=== PATIENT | female | born 1995 | race American Indian/Alaskan Native ===

== ENCOUNTER 2017-01-19 05:02 | Emergency (ER) | payer MEDICAID ==
[2017-01-19] MEDS ORDERED: ZOFRAN IV ONE ×2 (05:19→10:38)
[2017-01-19] MEDS ORDERED: TORADOL IV ONE (05:20)
[2017-01-19 05:51] LABS: Basophils % (Auto) 0.9 % (0.0-1.8); Eosinophils % (Auto) 0.1 % (0.0-4.3); Hematocrit 42.7 % (30.3-42.9); Hemoglobin 14.9 gm/dl (10.1-14.3); Mean Corpuscular HGB Conc 35 % (30-34); Mean Corpuscular Hemoglobin 33 pg (28-32); Mean Corpuscular Volume 94 fl (79-97); Platelet Count 270 K/mm3 (140-440); Red Blood Count 4.57 M/mm3 (3.65-5.03); Red Cell Distribution Width 12.5 % (13.2-15.2); White Blood Count 12.4 K/mm3 (4.5-11.0)
[2017-01-19 06:19] LABS: Alanine Aminotransferase 14 units/L (7-56); Albumin 5.3 g/dL (3.9-5); Albumin/Globulin Ratio 1.4 %; Alkaline Phosphatase 56 units/L (35-129); Anion Gap 22 mmol/L; BUN/Creatinine Ratio 16; Blood Urea Nitrogen 11 mg/dL (7-17); Carbon Dioxide 23 mmol/L (22-30); Chloride 95.4 mmol/L (98-107); Glucose 114 mg/dL (65-100); Lipase 54 units/L (13-60); Potassium 3.3 mmol/L (3.6-5.0); Sodium 137 mmol/L (137-145)
[2017-01-19] MEDS ORDERED: ZOFRAN IM ONE (10:07)
--- NOTE | 2017-01-19 10:12 | Emergency Department Report ---
ED Abdominal Pain HPI - General Chief Complaint: Abdominal Pain Stated Complaint: SEVERE ABD PAIN Time Seen by Provider: 01/19/17 10:10 Source: patient Mode of arrival: Ambulatory Limitations: No Limitations - History of Present Illness Initial Comments: The patient complains of crampy lower abdominal pain which began at the onset of her period 2-3 days ago. Her discomfort has been intermittent. She has been here for similar symptoms before. She states that she does have painful periods. She denies dysuria and discharge. She's had no fever or chills. MD Complaint: abdominal pain -: Gradual, days(s) Location: LLQ, RLQ Radiation: none Migration to: no migration Severity: moderate, severe Quality: cramping Consistency: intermittent Improves With: nothing Worsens With: nothing Context: other (menses) Associated Symptoms: nausea, vomiting - Related Data Previous Rx's Medication Instructions Recorded Last Taken Type Cyclobenzaprine HCl [Flexeril 5mg] 5 mg PO Q8H PRN #12 tablet 07/28/14 Unknown Rx Ibuprofen [Motrin 600 MG tab] 600 mg PO Q8H #21 tablet 07/28/14 Unknown Rx Ibuprofen [Motrin 600 MG tab] 600 mg PO Q8H PRN #30 tablet 11/17/15 Unknown Rx Levofloxacin [Levaquin TAB] 500 mg PO QDAY #7 tablet 11/17/15 Unknown Rx Nitrofurantoin Monohyd/M-Cryst 100 mg PO BID #7 capsule 01/19/17 Unknown Rx [Macrobid 100 mg Capsule] Ondansetron [Zofran Odt] 4 mg PO Q6H #7 tab.rapdis 01/19/17 Unknown Rx traMADol [Ultram] 50 mg PO Q6HR PRN #10 tablet 01/19/17 Unknown Rx Allergies Allergy/AdvReac Type Severity Reaction Status Date / Time Penicillins Allergy Unknown Verified 05/25/15 23:56 ED Review of Systems ROS: Stated complaint: SEVERE ABD PAIN Other details as noted in HPI Constitutional: denies: chills, fever Eyes: denies: eye pain, eye discharge, vision change ENT: denies: ear pain, throat pain Respiratory: denies: cough, shortness of breath, wheezing Cardiovascular: denies: chest pain, palpitations Endocrine: no symptoms reported Gastrointestinal: as per HPI, abdominal pain, nausea, vomiting. denies: diarrhea Genitourinary: other. denies: urgency, dysuria, discharge Musculoskeletal: denies: back pain, joint swelling, arthralgia Skin: denies: rash, lesions Neurological: denies: headache, weakness, paresthesias Psychiatric: denies: anxiety, depression Hematological/Lymphatic: denies: easy bleeding, easy bruising ED Past Medical Hx - Past Medical History Previous Medical History?: No - Surgical History Past Surgical History?: No - Social History Smoking Status: Never Smoker Substance Use Type: None - Medications Home Medications: Home Medications Medication Instructions Recorded Confirmed Last Taken Type Cyclobenzaprine HCl [Flexeril 5mg] 5 mg PO Q8H PRN #12 tablet 07/28/14 Unknown Rx Ibuprofen [Motrin 600 MG tab] 600 mg PO Q8H #21 tablet 07/28/14 Unknown Rx Ibuprofen [Motrin 600 MG tab] 600 mg PO Q8H PRN #30 tablet 11/17/15 Unknown Rx Levofloxacin [Levaquin TAB] 500 mg PO QDAY #7 tablet 11/17/15 Unknown Rx Nitrofurantoin Monohyd/M-Cryst 100 mg PO BID #7 capsule 01/19/17 Unknown Rx [Macrobid 100 mg Capsule] Ondansetron [Zofran Odt] 4 mg PO Q6H #7 tab.rapdis 01/19/17 Unknown Rx traMADol [Ultram] 50 mg PO Q6HR PRN #10 tablet 01/19/17 Unknown Rx ED Physical Exam - General Limitations: No Limitations General appearance: alert, in no apparent distress, other (somewhat dry) - Head Head exam: Present: atraumatic, normocephalic - Eye Eye exam: Present: normal appearance. Absent: scleral icterus - ENT ENT exam: Present: mucous membranes moist - Neck Neck exam: Present: normal inspection - Respiratory Respiratory exam: Present: normal lung sounds bilaterally. Absent: respiratory distress - Cardiovascular Cardiovascular Exam: Present: regular rate, normal rhythm. Absent: systolic murmur, diastolic murmur, rubs, gallop - GI/Abdominal GI/Abdominal exam: Present: soft, distended, tenderness (some lower abdominal discomfort to palpation bilaterally and in the suprapubic region), normal bowel sounds. Absent: guarding, rebound, rigid, organomegaly, mass, bruit, pulsatile mass, hernia - Extremities Exam Extremities exam: Present: normal inspection - Back Exam Back exam: Present: normal inspection - Neurological Exam Neurological exam: Present: alert, oriented X3, CN II-XII intact. Absent: motor sensory deficit - Psychiatric Psychiatric exam: Present: normal affect, normal mood - Skin Skin exam: Present: warm, dry, intact, normal color. Absent: rash ED Course Vital Signs 01/19/17 05:09 Temperature 98 F Pulse Rate 98 H Respiratory 20 Rate Blood Pressure 142/92 O2 Sat by Pulse 100 Oximetry - Reevaluation(s) Reevaluation #1: Symptoms have improved. No more emesis. Tolerated potassium by mouth. Possible mild UTI. Patient states she has follow-up physician. She will be discharged. States ready for discharge. 01/19/17 13:56 ED Medical Decision Making - Lab Data Result diagrams: 01/19/17 05:00 01/19/17 05:17 Laboratory Results - last 24 hr 01/19/17 01/19/17 01/19/17 05:00 05:00 05:17 WBC 12.4 H RBC 4.57 Hgb 14.9 H Hct 42.7 MCV 94 MCH 33 H MCHC 35 H RDW 12.5 L Plt Count 270 Lymph % (Auto) 14.2 [place] % (Auto) 7.7 H Eos % (Auto) 0.1 Baso % (Auto) 0.9 Lymph # 1.8 [place] # 1.0 H Eos # 0.0 Baso # 0.1 Seg Neutrophils % 77.1 H Seg Neutrophils # 9.5 H Sodium 137 Potassium 3.3 L Chloride 95.4 L Carbon Dioxide 23 Anion Gap 22 BUN 11 Creatinine 0.7 Estimated GFR > 60 BUN/Creatinine Ratio 16 Glucose 114 H POC Glucose Calcium 10.0 Total Bilirubin 0.50 AST 19 ALT 14 Alkaline Phosphatase 56 Total Protein 9.0 H Albumin 5.3 H Albumin/Globulin Ratio 1.4 Lipase 54 HCG, Qual Negative 01/19/17 05:26 WBC RBC Hgb Hct MCV MCH MCHC RDW Plt Count Lymph % (Auto) [place] % (Auto) Eos % (Auto) Baso % (Auto) Lymph # [place] # Eos # Baso # Seg Neutrophils % Seg Neutrophils # Sodium Potassium Chloride Carbon Dioxide Anion Gap BUN Creatinine Estimated GFR BUN/Creatinine Ratio Glucose POC Glucose 110 H Calcium Total Bilirubin AST ALT Alkaline Phosphatase Total Protein Albumin Albumin/Globulin Ratio Lipase HCG, Qual Laboratory Results - last 24 hr 01/19/17 01/19/17 01/19/17 05:00 05:00 05:17 WBC 12.4 H RBC 4.57 Hgb 14.9 H Hct 42.7 MCV 94 MCH 33 H MCHC 35 H RDW 12.5 L Plt Count 270 Lymph % (Auto) 14.2 [place] % (Auto) 7.7 H Eos % (Auto) 0.1 Baso % (Auto) 0.9 Lymph # 1.8 [place] # 1.0 H Eos # 0.0 Baso # 0.1 Seg Neutrophils % 77.1 H Seg Neutrophils # 9.5 H Sodium 137 Potassium 3.3 L Chloride 95.4 L Carbon Dioxide 23 Anion Gap 22 BUN 11 Creatinine 0.7 Estimated GFR > 60 BUN/Creatinine Ratio 16 Glucose 114 H POC Glucose Calcium 10.0 Total Bilirubin 0.50 AST 19 ALT 14 Alkaline Phosphatase 56 Total Protein 9.0 H Albumin 5.3 H Albumin/Globulin Ratio 1.4 Lipase 54 HCG, Qual Negative Urine Color Urine Turbidity Urine pH Ur Specific [place] Urine Protein Urine Glucose (UA) Urine Ketones Urine Blood Urine Nitrite Urine Bilirubin Urine Urobilinogen Ur Leukocyte Esterase Urine WBC (Auto) Urine RBC (Auto) U Epithel Cells (Auto) Urine Mucus 01/19/17 01/19/17 05:26 13:20 WBC RBC Hgb Hct MCV MCH MCHC RDW Plt Count Lymph % (Auto) [place] % (Auto) Eos % (Auto) Baso % (Auto) Lymph # [place] # Eos # Baso # Seg Neutrophils % Seg Neutrophils # Sodium Potassium Chloride Carbon Dioxide Anion Gap BUN Creatinine Estimated GFR BUN/Creatinine Ratio Glucose POC Glucose 110 H Calcium Total Bilirubin AST ALT Alkaline Phosphatase Total Protein Albumin Albumin/Globulin Ratio Lipase HCG, Qual Urine Color Yellow Urine Turbidity Clear Urine pH 5.0 Ur Specific [place] 1.033 H Urine Protein 30 mg/dl Urine Glucose (UA) Neg Urine Ketones 80 Urine Blood Lg Urine Nitrite Neg Urine Bilirubin Neg Urine Urobilinogen < 2.0 Ur Leukocyte Esterase Neg Urine WBC (Auto) 5.0 Urine RBC (Auto) < 1.0 U Epithel Cells (Auto) 7.0 Urine Mucus 3+ - Radiology Data Radiology results: report reviewed (ultrasound study showed no acute process) Critical care attestation.: If time is entered above; I have spent that time in minutes in the direct care of this critically ill patient, excluding procedure time. 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 Return any recurrent symptoms acute change or problem. Rx as needed. Possible mild UTI. Will give you antibiotics for a few days. Prescriptions: Nitrofurantoin Monohyd/M-Cryst [Macrobid 100 mg Capsule] 100 mg PO BID #7 capsule Ondansetron [Zofran Odt] 4 mg PO Q6H #7 tab.rapdis traMADol [Ultram] 50 mg PO Q6HR PRN #10 tablet PRN Reason: Pain Referrals: PRIMARY CARE, [Primary Care Provider] - 2-3 Days Time of Disposition: 14:00
[2017-01-19] MEDS ORDERED: MORPHINE IV ONE (10:14)
[2017-01-19] MEDS ORDERED: NACL 0.9% 1000 ML 1,000 ML IV ONE (10:23)
[2017-01-19] MEDS ORDERED: REGLAN IV ONE (10:23)
[2017-01-19] MEDS ORDERED: K-DUR PO ONE (11:23)
--- NOTE | 2017-01-19 11:31 | Ultrasound Report ---
Pelvic and transvaginal sonography: History: Lower abdominal pain. Findings: Uterus measures 7 x 2.7 x 4.7 cm. Endometrial thickness 5 mm. No mass in the uterus. Right ovary 2.6 x 2.7 x 2.4 cm. No mass. Left ovary 2.4 x 2 x 2.5 cm. No mass. There is debris identified within the bladder without calculi. Impression: No mass in the uterus. No mass of the adnexa. Debri within the bladder.
[2017-01-19 13:48] LABS: Bilirubin,Urine NEG (Negative); Blood,Urine LG (Negative); Ketones,Urine 80 mg/dL (Negative); Leukocyte Esterase,Urine NEG (Negative); Mucus,Urine 3+ /HPF; Nitrite,Urine NEG (Negative); RBC,Urine < 1.0 /HPF (0.0-6.0); Urobilinogen,Urine < 2.0 mg/dL (<2.0)
[2017-01-19 14:13] VITALS: BP 149/66
== END 2017-01-19 14:13 | disposition home or self-care (01) ==
LOC: ED 05:02
DX: E86.9 Volume depletion, unspecified (principal); E87.6 Hypokalemia; N94.6 Dysmenorrhea, unspecified; N39.0 Urinary tract infection, site not specified; Z88.0 Allergy status to penicillin
CPT/HCPCS: 36415; 76830; 76856; 80053; 81001; 82962; 83690; 84703; 85025; 96361; 96374; 96375; 96376; 99284; J1885; J2270; J2405; J2765; J7030

== ENCOUNTER 2018-10-24 12:05 | Inpatient (IN) | payer MEDICAID, OTHER ==
[2018-10-24] MEDS ORDERED: NACL 0.9% 1000 ML 1,000 ML ONE ×2 (12:28→12:31)
[2018-10-24] MEDS ORDERED: NACL 0.9% 1000 ML 1,000 ML IV ONE ×3 (12:29→13:44)
[2018-10-24] MEDS ORDERED: ZOFRAN ONE (12:29)
[2018-10-24] MEDS ORDERED: ZOFRAN IV ONE (12:29)
[2018-10-24 12:52] LABS: Basophils # (Auto) 0.1 K/mm3 (0.0-0.1); Basophils % (Auto) 0.9 % (0.0-1.8); Eosinophils # (Auto) 0.1 K/mm3 (0.0-0.4); Eosinophils % (Auto) 0.7 % (0.0-4.3); Hematocrit 45.5 % (30.3-42.9); Hemoglobin 16.1 gm/dl (10.1-14.3); Lymphocytes # (Auto) 2.2 K/mm3 (1.2-5.4); Lymphocytes % (Auto) 26.4 % (13.4-35.0); Mean Corpuscular HGB Conc 35 % (30-34); Mean Corpuscular Volume 94 fl (79-97); Monocytes % (Auto) 11.9 % (0.0-7.3); Platelet Count 357 K/mm3 (140-440); Red Blood Count 4.86 M/mm3 (3.65-5.03); Red Cell Distribution Width 12.7 % (13.2-15.2)
[2018-10-24 13:15] LABS: Alanine Aminotransferase 16 units/L (7-56); Albumin 4.7 g/dL (3.9-5); BUN/Creatinine Ratio 16; Blood Urea Nitrogen 14 mg/dL (7-17); Calcium 9.6 mg/dL (8.4-10.2); Hemolysis Index 5
--- NOTE | 2018-10-24 13:19 | Emergency Department Report ---
HPI - General Chief Complaint: Nausea/Vomiting/Diarrhea Time Seen by Provider: 10/24/18 12:29 - HPI HPI: Room 18 The patient is a 23-year-old female presenting with a chief complaint nausea vomiting and body pain. Patient states for the past 5 days she's had frequent nausea and vomiting. Patient denies diarrhea. Patient complains of pain throughout her body. Location: [See above] Duration: [See above] Quality: [See above] Severity: [See above] Modifying factors: [see above] Context: [see above] Mode of transportation: [not driving] ED Past Medical Hx - Past Medical History Previous Medical History?: No - Surgical History Past Surgical History?: No - Family History Family history: no significant - Social History Smoking Status: Never Smoker Substance Use Type: None (denies illicit drug use) - Medications Home Medications: Home Medications Medication Instructions Recorded Confirmed Last Taken Type No Known Home Medications [No 10/24/18 10/24/18 Unknown History Reported Home Medications] ED Review of Systems ROS: Stated complaint: NAUSEA/ABD/BACK PAIN Other details as noted in HPI Constitutional: denies: fever Eyes: denies: eye pain ENT: denies: throat pain Respiratory: no symptoms reported Cardiovascular: denies: chest pain Endocrine: no symptoms reported Gastrointestinal: abdominal pain, nausea, vomiting Genitourinary: denies: dysuria Musculoskeletal: myalgia Neurological: denies: headache Physical Exam - Physical Exam Vital Signs: Vital Signs 10/24/18 10/24/18 10/24/18 12:22 12:30 12:45 Temperature 98.2 F Pulse Rate 171 H 142 H 128 H Respiratory 11 L 14 11 L Rate Blood Pressure 148/101 136/103 O2 Sat by Pulse 99 100 100 Oximetry Physical Exam: GENERAL: The patient is well-developed well-nourished female lying on stretcher appearing to be in mild discomfort. [] HEENT: Normocephalic. Atraumatic. Extraocular motions are intact. NECK: Supple. Trachea midline CHEST/LUNGS: Clear to auscultation. There is no respiratory distress noted. HEART/CARDIOVASCULAR: Regular. There is no tachycardia. There is no gallop rub or murmur. ABDOMEN: Abdomen is soft, with diffuse tenderness to palpation. Patient has normal bowel sounds. There is no abdominal distention. SKIN: There is no rash. There is no edema. There is no diaphoresis. NEURO: The patient is awake, alert, and oriented. The patient is cooperative. The patient has normal speech MUSCULOSKELETAL: There is no evidence of acute injury. ED Course Vital Signs 10/24/18 10/24/18 10/24/18 12:22 12:30 12:45 Temperature 98.2 F Pulse Rate 171 H 142 H 128 H Respiratory 11 L 14 11 L Rate Blood Pressure 148/101 136/103 O2 Sat by Pulse 99 100 100 Oximetry ED Medical Decision Making - Lab Data Result diagrams: 10/25/18 08:00 10/25/18 08:00 - Radiology Data Radiology results: report reviewed (CT a/p), image reviewed (CT a/p) [facility] [address] [place] [address] Cat Scan Report Signed Patient: JAIDEN GORDILLO MR#: [id number] : 1995 Acct:[id number] Age/Sex: 23 / F ADM Date: 10/24/18 Loc: ED Attending Dr: Ordering Physician: ERICA HARRELL MD Date of Service: 10/24/18 Procedure(s): CT abdomen pelvis w con Accession Number(s): [id number] cc: ERICA HARRELL MD CT abdomen pelvis w con INDICATION: nausea and vomiting, diffuse abdominal pain. TECHNIQUE: All CT scans at this location are performed using the following dose modulation technique: Automated exposure control. Helical slices were obtained through the abdomen and pelvis. 86 cc of Omnipaque 300 is administered. COMPARISON: None available. FINDINGS: Abdomen: The lung bases are clear. Liver, spleen, pancreas, adrenal glands, and kidneys are unremarkable. The aorta is normal in diameter. There is no obstruction, inflammation, or free air. The appendix is unremarkable. Pelvis: The bowel contained within the pelvis is unremarkable. There is no inflammatory change. There are no abnormal collections. On review of bone windows, no acute osseous abnormalities are seen. IMPRESSION: 1. There is no obstruction, inflammation, or free air. There are no abnormal fluid collections. The appendix is unremarkable. Signer Name: Negrito Rosales MD Signed: 10/24/2018 4:01 PM Workstation Name: [id number] Transcribed By: Dictated By: Negrito Rosales MD Electronically Authenticated By: Negrito Rosales MD Signed Date/Time: 10/24/18 1601 DD/ 1556 TD/TT: - Differential Diagnosis gastritis, partial small bowel structure, dehydration Critical care attestation.: If time is entered above; I have spent that time in minutes in the direct care of this critically ill patient, excluding procedure time. ED Disposition Clinical Impression: Hypokalemia, Dehydration, Nausea & vomiting Disposition: DC-09 OP ADMIT IP TO THIS HOSP Is pt being admited?: Yes Does the pt Need Aspirin: No Condition: Fair
[2018-10-24 13:22] LABS: Free T4 (Free Thyroxine) 2.43 ng/dL (0.76-1.46)
[2018-10-24] MEDS ORDERED: REGLAN IV ONE (13:45)
[2018-10-24] MEDS ORDERED: K-DUR PO ONE (13:45)
[2018-10-24] MEDS: KCL 10MEQ/100ML 10 MEQ/100 ML BAG IV SCH ×3 (14:16→17:58)
--- NOTE | 2018-10-24 16:05 | Cat Scan Report ---
CT abdomen pelvis w con INDICATION: nausea and vomiting, diffuse abdominal pain. TECHNIQUE: All CT scans at this location are performed using the following dose modulation technique: Automated exposure control. Helical slices were obtained through the abdomen and pelvis. 86 cc of Omnipaque 300 is administered. COMPARISON: None available. FINDINGS: Abdomen: The lung bases are clear. Liver, spleen, pancreas, adrenal glands, and kidneys are unremarka ble. The aorta is normal in diameter. There is no obstruction, inflammation, or free air. The appendi x is unremarkable. Pelvis: The bowel contained within the pelvis is unremarkable. There is no inflammatory change. There are no abnormal collections. On review of bone windows, no acute osseous abnormalities are seen. IMPRESSION: 1. There is no obstruction, inflammation, or free air. There are no abnormal fluid collections. The a ppendix is unremarkable. Signer Name: Negrito Rosales MD Signed: 10/24/2018 4:01 PM Workstation Name: [id number]
[2018-10-24 17:28] LABS: Bilirubin,Urine NEG (Negative); Blood,Urine SM (Negative); Color,Urine Yellow (Yellow); Mucus,Urine FEW /HPF; Protein,Urine <15 mg/dL mg/dL (Negative); Urobilinogen,Urine < 2.0 mg/dL (<2.0)
[2018-10-24] MEDS ORDERED: KCL 10MEQ/100ML 0 MEQ/0 ML BAG IV ONE (19:01)
[2018-10-24] MEDS ORDERED: PERCOCET 5/325 PO PRN (21:36)
[2018-10-24] MEDS ORDERED: TYLENOL PO PRN (21:36)
[2018-10-24] MEDS ORDERED: DILAUDID IV PRN (21:36)
[2018-10-24] MEDS ORDERED: SODIUM CHLORIDE FLUSH SYRINGE 10 ML IV PRN (21:36)
[2018-10-24] MEDS ORDERED: ZOFRAN IV PRN (21:36)
[2018-10-24] MEDS: PEPCID IV SCH (23:05)
[2018-10-24] MEDS: SODIUM CHLORIDE FLUSH SYRINGE 10 ML IV SCH (23:05)
[2018-10-25] MEDS ORDERED: BENADRYL PO PRN (00:03)
--- NOTE | 2018-10-25 05:44 | History and Physical Report ---
History of Present Illness Date of examination: 10/24/18 Date of admission: 10/24/18 16:02 Chief complaint: N/V/body aches for 5 days. History of present illness: 23-year-old female presenting with a chief complaint nausea vomiting and body pains. Patient states for the past 5 days she's had frequent nausea and vomiting. Patient denies diarrhea. Patient complains of pain throughout her body.Feels weak and has muscle spasms.In ED K level was 2.6.Patient improved symptomatically and wanted to go home AMA.Explained to her the dangers of low potassium --she reluctantly stayed back. Past Medical History Previous Medical History?: No Surgical History Past Surgical History?: No Family History Family history: no significant Social History Smoking Status: Never Smoker Substance Use Type: None (denies illicit drug use) Medications Home Medications: Home Medications Medication Instructions Recorded Confirmed Last Taken Type No Known Home Medications [No 10/24/18 10/24/18 Unknown History Reported Home Medications] Review of Systems ROS: Stated complaint: NAUSEA/ABD/BACK PAIN Other details as noted in HPI Constitutional: denies: fever Eyes: denies: eye pain ENT: denies: throat pain Respiratory: no symptoms reported Cardiovascular: denies: chest pain Endocrine: no symptoms reported Gastrointestinal: abdominal pain, nausea, vomiting Genitourinary: denies: dysuria Musculoskeletal: myalgia Neurological: denies: headache Medications and Allergies Allergies Allergy/AdvReac Type Severity Reaction Status Date / Time Penicillins Allergy Unknown Verified 05/25/15 23:56 Home Medications Medication Instructions Recorded Confirmed Last Taken Type No Known Home Medications [No 10/24/18 10/24/18 Unknown History Reported Home Medications] Active Meds: Active Medications Acetaminophen (Tylenol) 650 mg PO Q4H PRN PRN Reason: Pain MILD(1-3)/Fever >100.5/MICHEL Diphenhydramine HCl (Benadryl) 25 mg PO QHS PRN PRN Reason: Sleep Last Admin: 10/25/18 00:18 Dose: 25 mg Documented by: Famotidine (Pepcid) 20 mg IV BID ROLA Last Admin: 10/24/18 23:05 Dose: 20 mg Documented by: Hydromorphone HCl (Dilaudid) 0.5 mg IV Q3H PRN PRN Reason: Pain , Severe (7-10) Dextrose/Sodium Chloride (D5ns) 1,000 mls @ 100 mls/hr IV DIRECT ROLA Ondansetron HCl (Zofran) 4 mg IV Q8H PRN PRN Reason: Nausea And Vomiting Oxycodone/Acetaminophen (Percocet 5/325) 1 tab PO Q6H PRN PRN Reason: Pain, Moderate (4-6) Sodium Chloride (Sodium Chloride Flush Syringe 10 Ml) 10 ml IV BID ROLA Last Admin: 10/24/18 23:05 Dose: 10 ml Documented by: Sodium Chloride (Sodium Chloride Flush Syringe 10 Ml) 10 ml IV PRN PRN PRN Reason: LINE FLUSH Exam - Constitutional Vitals: Temp Pulse Resp BP Pulse Ox 97.5 F L 97 H 18 129/92 100 10/25/18 05:15 10/25/18 05:11 10/25/18 05:11 10/25/18 05:11 10/25/18 05:11 General appearance: Present: mild distress, well-nourished - EENT Eyes: Present: PERRL ENT: hearing intact, clear oral mucosa, other (Dry mucous membranes) - Neck Neck: Present: supple, normal ROM - Respiratory Respiratory effort: normal Respiratory: bilateral: CTA - Cardiovascular Heart rate: 78 Rhythm: regular Heart Sounds: Present: S1 & S2. Absent: rub, click - Extremities Extremities: no ischemia, pulses intact, pulses symmetrical, No edema Peripheral Pulses: within normal limits - Abdominal General gastrointestinal: Present: soft, non-tender, non-distended, normal bowel sounds Female genitourinary: Present: normal - Rectal Rectal Exam: deferred - Integumentary Integumentary: Present: clear, warm, dry - Musculoskeletal Musculoskeletal: gait normal, strength equal bilaterally - Psychiatric Psychiatric: appropriate mood/affect, intact judgment & insight - Neurologic Neurologic: CNII-XII intact, moves all extremities - Allied Health Allied health notes reviewed: nursing, case management Results - Labs CBC & Chem 7: 10/24/18 12:34 10/24/18 12:34 Labs: Laboratory Last Values WBC 8.4 K/mm3 (4.5-11.0) 10/24/18 12:34 RBC 4.86 M/mm3 (3.65-5.03) 10/24/18 12:34 Hgb 16.1 gm/dl (10.1-14.3) H 10/24/18 12:34 Hct 45.5 % (30.3-42.9) H 10/24/18 12:34 MCV 94 fl (79-97) 10/24/18 12:34 MCH 33 pg (28-32) H 10/24/18 12:34 MCHC 35 % (30-34) H 10/24/18 12:34 RDW 12.7 % (13.2-15.2) L 10/24/18 12:34 Plt Count 357 K/mm3 (140-440) 10/24/18 12:34 Lymph % (Auto) 26.4 % (13.4-35.0) 10/24/18 12:34 [place] % (Auto) 11.9 % (0.0-7.3) H 10/24/18 12:34 Eos % (Auto) 0.7 % (0.0-4.3) 10/24/18 12:34 Baso % (Auto) 0.9 % (0.0-1.8) 10/24/18 12:34 Lymph # 2.2 K/mm3 (1.2-5.4) 10/24/18 12:34 [place] # 1.0 K/mm3 (0.0-0.8) H 10/24/18 12:34 Eos # 0.1 K/mm3 (0.0-0.4) 10/24/18 12:34 Baso # 0.1 K/mm3 (0.0-0.1) 10/24/18 12:34 Seg Neutrophils % 60.1 % (40.0-70.0) 10/24/18 12:34 Seg Neutrophils # 5.1 K/mm3 (1.8-7.7) 10/24/18 12:34 Sodium 135 mmol/L (137-145) L 10/24/18 12:34 Potassium 2.6 mmol/L (3.6-5.0) L* 10/24/18 12:34 Chloride 96.0 mmol/L (98-107) L 10/24/18 12:34 Carbon Dioxide 21 mmol/L (22-30) L 10/24/18 12:34 21 mmol/L 10/24/18 12:34 BUN 14 mg/dL (7-17) 10/24/18 12:34 0.9 mg/dL (0.7-1.2) 10/24/18 12:34 Estimated GFR > 60 ml/min 10/24/18 12:34 16 % 10/24/18 12:34 Glucose 121 mg/dL (65-100) H 10/24/18 12:34 Calcium 9.6 mg/dL (8.4-10.2) 10/24/18 12:34 1.40 mg/dL (0.1-1.2) H 10/24/18 12:34 AST 20 units/L (5-40) 10/24/18 12:34 ALT 16 units/L (7-56) 10/24/18 12:34 54 units/L (35-129) 10/24/18 12:34 < 0.010 ng/mL (0.00-0.029) 10/24/18 12:34 9.1 g/dL (6.3-8.2) H 10/24/18 12:34 4.7 g/dL (3.9-5) 10/24/18 12:34 1.1 % 10/24/18 12:34 42 units/L (13-60) 10/24/18 12:34 TSH 1.650 mlU/mL (0.270-4.200) 10/24/18 12:33 Free T4 2.43 ng/dL (0.76-1.46) H 10/24/18 12:33 HCG, Qual Negative (Negative) 10/24/18 12:34 Yellow (Yellow) 10/24/18 16:30 Slightly-cloudy (Clear) 10/24/18 16:30 5.0 (5.0-7.0) 10/24/18 16:30 Ur Specific [place] 1.045 (1.003-1.030) H 10/24/18 16:30 <15 mg/dl mg/dL (Negative) 10/24/18 16:30 Neg mg/dL (Negative) 10/24/18 16:30 20 mg/dL (Negative) 10/24/18 16:30 Sm (Negative) 10/24/18 16:30 Neg (Negative) 10/24/18 16:30 Neg (Negative) 10/24/18 16:30 < 2.0 mg/dL (<2.0) 10/24/18 16:30 Ur Leukocyte Esterase Mod (Negative) 10/24/18 16:30 31.0 /HPF (0.0-6.0) H 10/24/18 16:30 3.0 /HPF (0.0-6.0) 10/24/18 16:30 U Epithel Cells (Auto) 23.0 /HPF (0-13.0) H 10/24/18 16:30 Few /HPF 10/24/18 16:30 Short CBC 10/24/18 Range/Units 12:34 WBC 8.4 (4.5-11.0) K/mm3 Hgb 16.1 H (10.1-14.3) gm/dl Hct 45.5 H (30.3-42.9) % Plt Count 357 (140-440) K/mm3 BMP 10/24/18 12:34 Sodium 135 L Potassium 2.6 L* Chloride 96.0 L Carbon Dioxide 21 L BUN 14 Creatinine 0.9 Glucose 121 H Calcium 9.6 Cardiac Enzymes 10/24/18 Range/Units 12:34 Troponin T < 0.010 (0.00-0.029) ng/mL Liver Function 10/24/18 Range/Units 12:34 Total Bilirubin 1.40 H (0.1-1.2) mg/dL AST 20 (5-40) units/L ALT 16 (7-56) units/L Alkaline Phosphatase 54 (35-129) units/L Albumin 4.7 (3.9-5) g/dL Urine 10/24/18 Range/Units 16:30 Urine Color Yellow (Yellow) Urine pH 5.0 (5.0-7.0) Ur Specific [place] 1.045 H (1.003-1.030) Urine Protein <15 mg/dl (Negative) mg/dL Urine Glucose (UA) Neg (Negative) mg/dL - Imaging and Cardiology Imaging and Cardiology: Abd ct /pelvis IMPRESSION: 1. There is no obstruction, inflammation, or free air. There are no abnormal fluid collections. The appendix is unremarkable. Assessment and Plan Advance Directives: Yes (FC) VTE prophylaxis?: Chemical Plan of care discussed with patient/family: Yes - Patient Problems (1) Acute infectious nonbacterial gastroenteritis Current Visit: Yes Status: Acute Plan to address problem: Probably viral Treat symptomatically (2) Dehydration Current Visit: Yes Status: Acute Plan to address problem: IV Fluids for now (3) Hypokalemia Current Visit: Yes Status: Acute Plan to address problem: Supplemented (4) DVT prophylaxis Current Visit: Yes Status: Acute Plan to address problem: On Lovenox and GI prophylaxis
[2018-10-25] MEDS ORDERED: K-DUR PO ONE (05:50)
[2018-10-25] MEDS: KCL 10MEQ/100ML 10 MEQ/100 ML BAG IV SCH ×6 (06:50→14:22)
[2018-10-25 08:17] LABS: Basophils % (Auto) 0.7 % (0.0-1.8); Eosinophils # (Auto) 0.1 K/mm3 (0.0-0.4); Eosinophils % (Auto) 1.2 % (0.0-4.3); Hematocrit 36.2 % (30.3-42.9); Hemoglobin 12.5 gm/dl (10.1-14.3); Lymphocytes # (Auto) 2.1 K/mm3 (1.2-5.4); Lymphocytes % (Auto) 29.7 % (13.4-35.0); Mean Corpuscular HGB Conc 35 % (30-34); Mean Corpuscular Volume 95 fl (79-97); Monocytes # (Auto) 0.9 K/mm3 (0.0-0.8); Monocytes % (Auto) 12.5 % (0.0-7.3); Platelet Count 249 K/mm3 (140-440); Red Cell Distribution Width 12.5 % (13.2-15.2)
[2018-10-25 08:43] LABS: Alanine Aminotransferase 11 units/L (7-56); Albumin 3.9 g/dL (3.9-5); BUN/Creatinine Ratio 8; Blood Urea Nitrogen 4 mg/dL (7-17); Calcium 8.6 mg/dL (8.4-10.2); Hemolysis Index 5
[2018-10-25] MEDS ORDERED: REGLAN IV PRN (08:51)
--- NOTE | 2018-10-25 09:01 | Progress Note ---
Assessment and Plan Assessment and plan: Patient is a 23 yo woman without chronic medical problems who presented to [facility] ED with n/v/weakness/HR 160-170/actively vomiting. CT abd/pelvis with IV contrast IMPRESSION: 1. There is no obstruction, inflammation, or free air. There are no abnormal fluid collections. The appendix is unremarkable. She was admitted to telemetry because of severe hypokalemia of 2.6 most likely from the vomiting. Now, she is demanding food or she will leave AMA. Repeat potassium level not resulted although the rest of the bmp is resulted. Severe hypokalemia due to vomiting: replete and recheck, monitor tele for arrhythmias, called chemistry lab, no answer N/V most likely Acute Gastritis/AGE: supportive care, advance diet to clears and treat with antiemetics, IVFs UTI: start IV abx not PO yet b/c on the N/V, asked Nurse to send the urine culture that was ordered in the ED Allergy to PCN: use Levaquin IV dispo: continue inpatient care, await urine culture and tolerating diet History Interval history: Patient was seen and examined. Follow-up on current diagnosis n/v which resolved. No overnight events reported to me. Patient denies any chest pain, shortness breath, nausea/vomiting or severe headaches. Imaging, nursing note, chart, labs and old chart reviewed. Discussed with patient. Hospitalist Physical - Physical exam Narrative exam: Gen: WDWN, NAD, Awake, Alert, Orientated HEENT: NCAT, EOMI, PERRL, OP Clear Neck: supple, no adenopathy, no thyromegaly, no JVD CVS/Heart: Reg tachy, normal S1S2, pulses present bilaterally Chest/Lungs: CTA B, Symmetrical chest expansion, good air entry bilaterally GI/Abdomen: soft, NTND, good bowel sounds, no guarding or rebound /Bladder: + suprapubic tenderness, + left side CVA tenderness but not paraspinal tenderness Extermity/Skin: no c/c/e, no obvious rash MSK: FROM x 4 Neuro: CN 2-12 grossly intact, no new focal deficits Psych: calm - Constitutional Vitals: Temp Pulse Resp BP Pulse Ox 98.4 F 107 H 16 134/97 99 10/25/18 07:52 10/25/18 07:52 10/25/18 07:52 10/25/18 07:52 10/25/18 07:52 General appearance: Present: well-nourished. Absent: mild distress Results - Labs CBC & Chem 7: 10/25/18 08:00 10/25/18 08:00 Labs: Laboratory Last Values WBC 6.9 K/mm3 (4.5-11.0) 10/25/18 08:00 RBC 3.80 M/mm3 (3.65-5.03) 10/25/18 08:00 Hgb 12.5 gm/dl (10.1-14.3) D 10/25/18 08:00 Hct 36.2 % (30.3-42.9) D 10/25/18 08:00 MCV 95 fl (79-97) 10/25/18 08:00 MCH 33 pg (28-32) H 10/25/18 08:00 MCHC 35 % (30-34) H 10/25/18 08:00 RDW 12.5 % (13.2-15.2) L 10/25/18 08:00 Plt Count 249 K/mm3 (140-440) 10/25/18 08:00 Lymph % (Auto) 29.7 % (13.4-35.0) 10/25/18 08:00 [place] % (Auto) 12.5 % (0.0-7.3) H 10/25/18 08:00 Eos % (Auto) 1.2 % (0.0-4.3) 10/25/18 08:00 Baso % (Auto) 0.7 % (0.0-1.8) 10/25/18 08:00 Lymph # 2.1 K/mm3 (1.2-5.4) 10/25/18 08:00 [place] # 0.9 K/mm3 (0.0-0.8) H 10/25/18 08:00 Eos # 0.1 K/mm3 (0.0-0.4) 10/25/18 08:00 Baso # 0.0 K/mm3 (0.0-0.1) 10/25/18 08:00 Seg Neutrophils % 55.9 % (40.0-70.0) 10/25/18 08:00 Seg Neutrophils # 3.9 K/mm3 (1.8-7.7) 10/25/18 08:00 Sodium 134 mmol/L (137-145) L 10/25/18 08:00 Potassium 3.2 mmol/L (3.6-5.0) L D 10/25/18 08:00 Chloride 97.6 mmol/L (98-107) L 10/25/18 08:00 Carbon Dioxide 24 mmol/L (22-30) 10/25/18 08:00 16 mmol/L 10/25/18 08:00 BUN 4 mg/dL (7-17) L 10/25/18 08:00 0.5 mg/dL (0.7-1.2) L 10/25/18 08:00 Estimated GFR > 60 ml/min 10/25/18 08:00 8 % 10/25/18 08:00 Glucose 131 mg/dL (65-100) H 10/25/18 08:00 POC Glucose 124 (70-105) H 10/25/18 08:04 Calcium 8.6 mg/dL (8.4-10.2) 10/25/18 08:00 0.80 mg/dL (0.1-1.2) 10/25/18 08:00 AST 14 units/L (5-40) 10/25/18 08:00 ALT 11 units/L (7-56) 10/25/18 08:00 40 units/L (35-129) 10/25/18 08:00 < 0.010 ng/mL (0.00-0.029) 10/24/18 12:34 6.7 g/dL (6.3-8.2) D 10/25/18 08:00 3.9 g/dL (3.9-5) 10/25/18 08:00 1.4 % 10/25/18 08:00 42 units/L (13-60) 10/24/18 12:34 TSH 1.650 mlU/mL (0.270-4.200) 10/24/18 12:33 Free T4 2.43 ng/dL (0.76-1.46) H 10/24/18 12:33 HCG, Qual Negative (Negative) 10/24/18 12:34 Yellow (Yellow) 10/24/18 16:30 Slightly-cloudy (Clear) 10/24/18 16:30 5.0 (5.0-7.0) 10/24/18 16:30 Ur Specific [place] 1.045 (1.003-1.030) H 10/24/18 16:30 <15 mg/dl mg/dL (Negative) 10/24/18 16:30 Neg mg/dL (Negative) 10/24/18 16:30 20 mg/dL (Negative) 10/24/18 16:30 Sm (Negative) 10/24/18 16:30 Neg (Negative) 10/24/18 16:30 Neg (Negative) 10/24/18 16:30 < 2.0 mg/dL (<2.0) 10/24/18 16:30 Ur Leukocyte Esterase Mod (Negative) 10/24/18 16:30 31.0 /HPF (0.0-6.0) H 10/24/18 16:30 3.0 /HPF (0.0-6.0) 10/24/18 16:30 U Epithel Cells (Auto) 23.0 /HPF (0-13.0) H 10/24/18 16:30 Few /HPF 10/24/18 16:30 Active Medications - Current Medications Current Medications: Generic Name Dose Route Start Last Admin Trade Name Freq PRN Reason Stop Dose Admin Acetaminophen 650 mg 10/24/18 21:36 Tylenol PO Q4H PRN Pain MILD(1-3)/Fever >100.5/MICHEL Diphenhydramine HCl 25 mg 10/25/18 00:03 10/25/18 00:18 Benadryl PO 25 mg QHS PRN Administration Sleep Enoxaparin Sodium 40 mg 10/25/18 22:00 Lovenox SUB-Q QDAY@2200 ROLA Famotidine 20 mg 10/24/18 22:00 10/24/18 23:05 Pepcid IV 20 mg BID ROLA Administration Hydromorphone HCl 0.5 mg 10/24/18 21:36 Dilaudid IV Q3H PRN Pain , Severe (7-10) Dextrose/Sodium Chloride 1,000 mls @ 100 mls/hr 10/24/18 22:00 D5ns IV DIRECT ROLA Potassium Chloride 10 meq in 100 mls @ 100 mls/hr 10/25/18 06:00 10/25/18 06:50 Kcl 10meq/100ml IV 10/25/18 09:59 100 mls/hr Q1H ROLA Administration Levofloxacin/Dextrose 500 mg in 100 mls @ 100 mls/hr 10/25/18 10:00 Levaquin 500mg/100ml IV Q24HR ROLA Protocol Metoclopramide HCl 10 mg 10/25/18 08:51 Reglan IV Q8H PRN Nausea And Vomiting Oxycodone/Acetaminophen 1 tab 10/24/18 21:36 Percocet 5/325 PO Q6H PRN Pain, Moderate (4-6) Sodium Chloride 10 ml 10/24/18 22:00 10/24/18 23:05 Sodium Chloride Flush Syringe 10 Ml IV 10 ml BID ROLA Administration Sodium Chloride 10 ml 10/24/18 21:36 Sodium Chloride Flush Syringe 10 Ml IV PRN PRN LINE FLUSH
[2018-10-25] MEDS: D5NS 1,000 ML IV SCH ×2 (10:15→21:09)
[2018-10-25] MEDS: PEPCID IV SCH (10:20)
[2018-10-25] MEDS: SODIUM CHLORIDE FLUSH SYRINGE 10 ML IV SCH ×2 (10:20→22:10)
[2018-10-25] MEDS: LEVAQUIN 500MG/100ML 500 MG/100 ML BAG IV SCH (10:20)
[2018-10-25] MEDS: PROTONIX IV SCH ×2 (12:17→21:09)
[2018-10-25] MEDS ORDERED: LOVENOX SUB-Q SCH (22:00)
[2018-10-26 09:29] VITALS: BP 127/98
[2018-10-26] MEDS: PROTONIX IV SCH (09:46)
[2018-10-26] MEDS: LEVAQUIN 500MG/100ML 500 MG/100 ML BAG IV SCH (09:46)
--- NOTE | 2018-10-26 09:51 | Discharge Summary ---
Providers - Providers Date of Admission: 10/24/18 16:02 Date of discharge: 10/26/18 Attending physician: FELIPE TORRES Primary care physician: DIRECTOR OF [employer] WOR[employer] Hospitalization Condition: Stable Hospital course: Patient is a 23 yo woman without chronic medical problems who presented to [facility] ED with n/v/weakness/HR 160-170/actively vomiting. CT abd/pelvis with IV contrast IMPRESSION: 1. There is no obstruction, inflammation, or free air. There are no abnormal fluid collections. The appendix is unremarkable. She was admitted to telemetry because of severe hypokalemia of 2.6 most likely from the vomiting. Now, she is demanding food or she will leave AMA. Repeat potassium level not resulted although the rest of the bmp is resulted. Discharge Diagnoses: Intractable N/V most likely Acute Gastritis/AGE: supportive care, advance diet to clears and treat with antiemetics, IVFs Severe hypokalemia due to vomiting: replete and recheck, monitor tele for arrhythmias, UTI: used IV abx not PO b/c N/V, asked Nurse to send the urine culture that was ordered in the ED Allergy to PCN: use Levaquin IV tolerated a steak dinner late night without n/v, urine ctx negative, Disposition: DC-01 TO HOME OR SELFCARE Time spent for discharge: 33 min Core Measure Documentation - Palliative Care Palliative Care/ Comfort Measures: Not Applicable - Core Measures Any of the following diagnoses?: none - VTE Discharge Requirements Deep Vein Thrombosis/Pulmonary Embolism Present on Admission: No Has pt received <5 days of overlap therapy or INR<2.0: No Anticoagulant overlap therapy prescribed at discharge: No Contraindication No Overlap Therapy order at DC: Not Indicated Exam - Physical Exam Narrative exam: Gen: WDWN, NAD, Awake, Alert, Orientated HEENT: NCAT, EOMI, PERRL, OP Clear Neck: supple, no adenopathy, no thyromegaly, no JVD CVS/Heart: Reg tachy, normal S1S2, pulses present bilaterally Chest/Lungs: CTA B, Symmetrical chest expansion, good air entry bilaterally GI/Abdomen: soft, NTND, good bowel sounds, no guarding or rebound /Bladder: + improved suprapubic tenderness, + much improved left side CVA tenderness but not paraspinal tenderness Extermity/Skin: no c/c/e, no obvious rash MSK: FROM x 4 Neuro: CN 2-12 grossly intact, no new focal deficits Psych: calm - Constitutional Vitals: Temp Pulse Resp BP Pulse Ox 98.4 F 108 H 16 127/98 100 10/26/18 08:13 10/26/18 08:13 10/26/18 08:13 10/26/18 08:13 10/26/18 08:13 Plan Activity: other (no strenous activity until cleared by PCP if no PCP see [facility], call [phone]) Diet: advance as tolerated Follow up with: [facility] [Provider Group] - 7 Days Prescriptions: Potassium Chloride [K-Dur] 20 meq PO QDAY #5 tablet levoFLOXacin [Levaquin TAB] 500 mg PO QDAY #5 tablet Pantoprazole [Protonix] 40 mg PO QDAY #7 tablet Metoclopramide [Reglan ORAL LIQ] 10 mg PO TID PRN #7 oral.liqd PRN Reason: Nausea
== END 2018-10-26 10:40 | disposition home or self-care (01) | DRG 392 ==
LOC: ED 12:05 → 4A 16:02
PROVIDERS: ADMIT Internal Medicine; ATTEND Internal Medicine
DX: A09 Infectious gastroenteritis and colitis, unspecified (principal); N39.0 Urinary tract infection, site not specified; K29.00 Acute gastritis without bleeding; E87.6 Hypokalemia; E86.0 Dehydration; Z88.0 Allergy status to penicillin
CPT/HCPCS: 36415; 74177; 80053; 81001; 82962; 83690; 84439; 84443; 84484; 84703; 85025; 87086; 93005; 93010; 96361; 96374; 96375; G0378; C9113; J1956; J2405; J2765; J3480; J7030; J7042; Q9967

== ENCOUNTER 2018-12-31 14:32 | Emergency (ER) | payer SELFPAY ==
--- NOTE | 2018-12-31 15:07 | Event Note ---
ED Screening Note Date of service: 12/31/18 Time: 15:06 ED Screening Note: 23 y/o female comes in for abd pain. Having n/v. Pain is throbbing and radiates to her back. Taking nothing for her pain. Took Pepto Bismol. LMP 12/28/18 This initial assessment/diagnostic orders/clinical plan/treatment(s) is/are subject to change based on patients health status, clinical progression and re- assessment by fellow clinical providers in the ED. Further treatment and workup at subsequent clinical providers discretion. Patient/guardian urged not to elope from the ED as their condition may be serious if not clinically assessed and managed. Initial orders include:
[2018-12-31 15:38] LABS: Basophils # (Auto) 0.1 K/mm3 (0.0-0.1); Basophils % (Auto) 1.2 % (0.0-1.8); Eosinophils % (Auto) 0.3 % (0.0-4.3); Hematocrit 41.5 % (30.3-42.9); Hemoglobin 13.9 gm/dl (10.1-14.3); Lymphocytes # (Auto) 2.3 K/mm3 (1.2-5.4); Lymphocytes % (Auto) 18.7 % (13.4-35.0); Mean Corpuscular HGB Conc 34 % (30-34); Mean Corpuscular Volume 95 fl (79-97); Monocytes % (Auto) 8.2 % (0.0-7.3); Platelet Count 299 K/mm3 (140-440); Red Blood Count 4.36 M/mm3 (3.65-5.03); Red Cell Distribution Width 12.2 % (13.2-15.2)
[2018-12-31 15:55] LABS: Alanine Aminotransferase 19 units/L (7-56); Albumin 5.1 g/dL (3.9-5); BUN/Creatinine Ratio 17; Blood Urea Nitrogen 12 mg/dL (7-17); Calcium 9.6 mg/dL (8.4-10.2); Hemolysis Index 6
[2018-12-31] MEDS ORDERED: POTASSIUM CHLORIDE ER 20 MEQ TAB PO ONE (16:02)
[2018-12-31] MEDS ORDERED: ONDANSETRON 4 MG ODT TAB PO ONE (16:02)
--- NOTE | 2018-12-31 16:02 | Emergency Department Report ---
HPI - General Chief Complaint: Abdominal Pain Time Seen by Provider: 12/31/18 15:06 - HPI HPI: 23 yo comes to ER with n/v/d for 3 days. no fever or chills. ambulatory non ill and non toxic on arrival. taking po. 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 no ba ck pain. no dysuria. no vag discharge or dysuria. ED Past Medical Hx - Past Medical History Previous Medical History?: No Hx Congestive Heart Failure: No Hx Diabetes: No Hx Asthma: No Hx COPD: No - Surgical History Past Surgical History?: No - Social History Smoking Status: Never Smoker Substance Use Type: Alcohol - Medications Home Medications: Home Medications Medication Instructions Recorded Confirmed Last Taken Type Ondansetron [Zofran Odt] 4 mg PO Q8HR PRN #10 tab.rapdis 12/31/18 Unknown Rx Sulfamethoxazole/Trimethoprim 1 each PO BID #10 tablet 12/31/18 Unknown Rx [Bactrim DS TAB] ED Review of Systems ROS: Stated complaint: N/V/ABD PAIN Other details as noted in HPI Comment: All other systems reviewed and negative Physical Exam - Physical Exam Vital Signs: Vital Signs 12/31/18 14:51 Temperature 99.1 F Pulse Rate 109 H Respiratory 18 Rate Blood Pressure 144/90 O2 Sat by Pulse 100 Oximetry ED Course Vital Signs 12/31/18 14:51 Temperature 99.1 F Pulse Rate 109 H Respiratory 18 Rate Blood Pressure 144/90 O2 Sat by Pulse 100 Oximetry ED Medical Decision Making - Lab Data Result diagrams: 12/31/18 15:19 12/31/18 15:19 - Medical Decision Making Vital Signs 12/31/18 14:51 Temperature 99.1 F Pulse Rate 109 H Respiratory 18 Rate Blood Pressure 144/90 O2 Sat by Pulse 100 Oximetry Lab Results 12/31/18 12/31/18 12/31/18 Range/Units 15:19 15:19 15:19 WBC 12.1 H (4.5-11.0) K/mm3 RBC 4.36 (3.65-5.03) M/mm3 Hgb 13.9 (10.1-14.3) gm/dl Hct 41.5 (30.3-42.9) % MCV 95 (79-97) fl MCH 32 (28-32) pg MCHC 34 (30-34) % RDW 12.2 L (13.2-15.2) % Plt Count 299 (140-440) K/mm3 Lymph % (Auto) 18.7 (13.4-35.0) % [place] % (Auto) 8.2 H (0.0-7.3) % Eos % (Auto) 0.3 (0.0-4.3) % Baso % (Auto) 1.2 (0.0-1.8) % Lymph # 2.3 (1.2-5.4) K/mm3 [place] # 1.0 H (0.0-0.8) K/mm3 Eos # 0.0 (0.0-0.4) K/mm3 Baso # 0.1 (0.0-0.1) K/mm3 Seg Neutrophils % 71.6 H (40.0-70.0) % Seg Neutrophils # 8.7 H (1.8-7.7) K/mm3 Sodium 138 (137-145) mmol/L Potassium 3.2 L (3.6-5.0) mmol/L Chloride 99.0 (98-107) mmol/L Carbon Dioxide 21 L (22-30) mmol/L Anion Gap 21 mmol/L BUN 12 (7-17) mg/dL Creatinine 0.7 (0.7-1.2) mg/dL Estimated GFR > 60 ml/min BUN/Creatinine Ratio 17 % Glucose 109 H (65-100) mg/dL Calcium 9.6 (8.4-10.2) mg/dL Total Bilirubin 0.40 (0.1-1.2) mg/dL AST 23 (5-40) units/L ALT 19 (7-56) units/L Alkaline Phosphatase 46 (35-129) units/L Total Protein 8.8 H (6.3-8.2) g/dL Albumin 5.1 H (3.9-5) g/dL Albumin/Globulin Ratio 1.4 % HCG, Qual Negative (Negative) Urine Color (Yellow) Urine Turbidity (Clear) Urine pH (5.0-7.0) Ur Specific [place] (1.003-1.030) Urine Protein (Negative) mg/dL Urine Glucose (UA) (Negative) mg/dL Urine Ketones (Negative) mg/dL Urine Blood (Negative) Urine Nitrite (Negative) Urine Bilirubin (Negative) Urine Urobilinogen (<2.0) mg/dL Ur Leukocyte Esterase (Negative) Urine WBC (Auto) (0.0-6.0) /HPF Urine RBC (Auto) (0.0-6.0) /HPF U Epithel Cells (Auto) (0-13.0) /HPF Urine Mucus /HPF Urine Opiates Screen Urine Methadone Screen Ur Barbiturates Screen Ur Phencyclidine Scrn Ur Amphetamines Screen U Benzodiazepines Scrn Urine Cocaine Screen U Marijuana (THC) Screen Drugs of Abuse Note 12/31/18 12/31/18 Range/Units Unknown Unknown WBC (4.5-11.0) K/mm3 RBC (3.65-5.03) M/mm3 Hgb (10.1-14.3) gm/dl Hct (30.3-42.9) % MCV (79-97) fl MCH (28-32) pg MCHC (30-34) % RDW (13.2-15.2) % Plt Count (140-440) K/mm3 Lymph % (Auto) (13.4-35.0) % [place] % (Auto) (0.0-7.3) % Eos % (Auto) (0.0-4.3) % Baso % (Auto) (0.0-1.8) % Lymph # (1.2-5.4) K/mm3 [place] # (0.0-0.8) K/mm3 Eos # (0.0-0.4) K/mm3 Baso # (0.0-0.1) K/mm3 Seg Neutrophils % (40.0-70.0) % Seg Neutrophils # (1.8-7.7) K/mm3 Sodium (137-145) mmol/L Potassium (3.6-5.0) mmol/L Chloride (98-107) mmol/L Carbon Dioxide (22-30) mmol/L Anion Gap mmol/L BUN (7-17) mg/dL Creatinine (0.7-1.2) mg/dL Estimated GFR ml/min BUN/Creatinine Ratio % Glucose (65-100) mg/dL Calcium (8.4-10.2) mg/dL Total Bilirubin (0.1-1.2) mg/dL AST (5-40) units/L ALT (7-56) units/L Alkaline Phosphatase (35-129) units/L Total Protein (6.3-8.2) g/dL Albumin (3.9-5) g/dL Albumin/Globulin Ratio % HCG, Qual (Negative) Urine Color Yellow (Yellow) Urine Turbidity Slightly-cloudy (Clear) Urine pH 6.0 (5.0-7.0) Ur Specific [place] 1.032 H (1.003-1.030) Urine Protein 100 mg/dl (Negative) mg/dL Urine Glucose (UA) 50 (Negative) mg/dL Urine Ketones 80 (Negative) mg/dL Urine Blood Neg (Negative) Urine Nitrite Neg (Negative) Urine Bilirubin Neg (Negative) Urine Urobilinogen < 2.0 (<2.0) mg/dL Ur Leukocyte Esterase Sm (Negative) Urine WBC (Auto) 10.0 H (0.0-6.0) /HPF Urine RBC (Auto) 8.0 (0.0-6.0) /HPF U Epithel Cells (Auto) 5.0 (0-13.0) /HPF Urine Mucus 3+ /HPF Urine Opiates Screen Presumptive negative Urine Methadone Screen Presumptive negative Ur Barbiturates Screen Presumptive negative Ur Phencyclidine Scrn Presumptive negative Ur Amphetamines Screen Presumptive negative U Benzodiazepines Scrn Presumptive negative Urine Cocaine Screen Presumptive negative U Marijuana (THC) Screen Presumptive positive Drugs of Abuse Note Disclamer labs noted ua noted denies vag dc or concern for sti uds noted pos thc vss no fever no chills. medicated in ER. No active n /v/d in the ER dc home with normal vs and dc plan of care including pcp follow up. HR on dc 90 per provider. taking po without difficulty - Differential Diagnosis ro preg/ ro uti/ ro sti Critical care attestation.: If time is entered above; I have spent that time in minutes in the direct care of this critically ill patient, excluding procedure time. ED Disposition Clinical Impression: UTI (urinary tract infection), Vomiting, Hypokalemia Disposition: DC-01 TO HOME OR SELFCARE Is pt being admited?: No Does the pt Need Aspirin: No Condition: Stable Instructions: Urinary Tract Infection in Women (ED) Additional Instructions: MEDS ORDERED FOLLOW UP WITH PCP REFERRAL GIVEN BELOW Prescriptions: Sulfamethoxazole/Trimethoprim [Bactrim DS TAB] 1 each PO BID #10 tablet Ondansetron [Zofran Odt] 4 mg PO Q8HR PRN #10 tab.rapdis PRN Reason: Vomiting Referrals: [facility] [Outside] - 3-5 Days Time of Disposition: 17:41 Physical Exam - Physical Exam Vital Signs: Vital Signs 12/31/18 12/31/18 12/31/18 14:51 19:04 20:04 Temperature 99.1 F 99.3 F 98.9 F Pulse Rate 109 H 112 H 99 H Respiratory 18 16 16 Rate Blood Pressure 144/90 Blood Pressure 143/100 129/99 [Right] O2 Sat by Pulse 100 98 100 Oximetry ED Psych EXAM - General General appearance: alert Limitations: No Limitations - Head Head exam: Positive: normocephalic - Eye Eye exam: normal appearance, PERRL - ENT ENT exam: Positive: mucous membranes moist - Neck Neck exam: Positive: normal inspection - Respiratory Respiratory exam: Positive: normal lung sounds bilaterally - Cardiovascular Cardiovascular Exam: Positive: regular rate - GI/Abdominal GI/Abdominal exam: Positive: soft, normal bowel sounds - Rectal Rectal exam: Positive: deferred - Extremities Extremities exam: Positive: normal inspection, full ROM - Back Back exam: normal inspection, full ROM - Neurological Neurological exam: Positive: alert, oriented X3, CN II-XII intact, normal gait - Psychiatric Psychiatric Exam: Positive: Normal Affect, Normal Mood - Skin Skin exam: Positive: warm, dry
[2018-12-31] MEDS ORDERED: cefTRIAXone/NS 1 GM/50 ML 1 GM/50 ML BAG IV ONE (16:44)
[2018-12-31] MEDS ORDERED: SODIUM CHLORIDE 0.9% 1000 ML 1,000 ML IV ONE ×2 (16:44→19:06)
[2018-12-31 16:45] LABS: Amphetamine Screen,Urine PRESUMPTIVE NEGATIVE; Benzodiazepines Screen,Urine PRESUMPTIVE NEGATIVE; Bilirubin,Urine NEG (Negative); Blood,Urine NEG (Negative); Cocaine Screen,Urine PRESUMPTIVE NEGATIVE; Color,Urine Yellow (Yellow); Methadone Screen,Urine PRESUMPTIVE NEGATIVE; Mucus,Urine 3+ /HPF; Opiate Screen,Urine PRESUMPTIVE NEGATIVE; Urobilinogen,Urine < 2.0 mg/dL (<2.0)
[2018-12-31 17:07] LABS: Cannabinoid Screen,Urine PRESUMPTIVE POSITIVE
[2018-12-31] MEDS ORDERED: ONDANSETRON 4 MG/2 ML INJ ONE (19:02)
[2018-12-31] MEDS ORDERED: ONDANSETRON 4 MG/2 ML INJ IV ONE (19:04)
[2018-12-31] MEDS ORDERED: ALUM-MAG HYDROXIDE-SIMETHICONE 200-200-20MG/5ML ORAL LIQD 30 ML PO ONE (19:05)
[2018-12-31] MEDS ORDERED: FAMOTIDINE 20 MG/2 ML INJ IV ONE (19:05)
[2018-12-31] MEDS ORDERED: LIDOCAINE VISCOUS 2% 15 ML ORAL LIQD PO ONE (19:05)
[2018-12-31 20:07] VITALS: BP 129/99
== END 2018-12-31 20:07 | disposition home or self-care (01) ==
LOC: ED 14:32
DX: N39.0 Urinary tract infection, site not specified (principal); Z79.899 Other long term (current) drug therapy
CPT/HCPCS: 36415; 80053; 80307; 81001; 84703; 85025; 87086; 96361; 96365; 96366; 96375; 99283; J0696; J2405; J7030; Q0162

== ENCOUNTER 2019-03-08 18:12 | Emergency (ER) | payer SELFPAY ==
[2019-03-08] MEDS ORDERED: ONDANSETRON 4 MG ODT TAB PO ONE (18:16)
--- NOTE | 2019-03-08 18:17 | Event Note ---
ED Screening Note Date of service: 03/08/19 Time: 18:13 ED Screening Note: This is a 24 y.o. F. that presents to the ER with abdominal pain, back pain, and vomiting for 3 days. This initial assessment/diagnostic orders/clinical plan/treatment(s) is/are subject to change based on patients health status, clinical progression and re- assessment by fellow clinical providers in the ED. Further treatment and workup at subsequent clinical providers discretion. Patient/guardian urged not to elope from the ED as their condition may be serious if not clinically assessed and managed. Initial orders include: Labs and CT of abdomen Zofran ODT 4 mg
[2019-03-08 18:39] LABS: Basophils # (Auto) 0.1 K/mm3 (0.0-0.1); Basophils % (Auto) 0.6 % (0.0-1.8); Eosinophils % (Auto) 0.1 % (0.0-4.3); Hematocrit 41.7 % (30.3-42.9); Hemoglobin 14.6 gm/dl (10.1-14.3); Lymphocytes # (Auto) 1.6 K/mm3 (1.2-5.4); Lymphocytes % (Auto) 14.9 % (13.4-35.0); Mean Corpuscular HGB Conc 35 % (30-34); Mean Corpuscular Volume 96 fl (79-97); Monocytes # (Auto) 0.7 K/mm3 (0.0-0.8); Monocytes % (Auto) 6.6 % (0.0-7.3); Platelet Count 344 K/mm3 (140-440); Red Blood Count 4.36 M/mm3 (3.65-5.03); Red Cell Distribution Width 13.1 % (13.2-15.2)
[2019-03-08 19:00] LABS: Alanine Aminotransferase 24 units/L (7-56); Albumin 5.4 g/dL (3.9-5); BUN/Creatinine Ratio 21; Blood Urea Nitrogen 15 mg/dL (7-17); Calcium 10.2 mg/dL (8.4-10.2); Hemolysis Index 14
[2019-03-08] MEDS ORDERED: MORPHINE 4 MG/1 ML INJ IV ONE (20:54)
[2019-03-08] MEDS ORDERED: SODIUM CHLORIDE 0.9% 1000 ML 1,000 ML IV ONE (20:54)
[2019-03-08] MEDS ORDERED: FAMOTIDINE 20 MG/2 ML INJ IV ONE (20:54)
[2019-03-08] MEDS ORDERED: ONDANSETRON 4 MG/2 ML INJ IV ONE (20:54)
--- NOTE | 2019-03-08 21:27 | Cat Scan Report ---
CT abdomen pelvis w con INDICATION / CLINICAL INFORMATION: diffuse abdominal pain. TECHNIQUE: Axial CT imaging of abdomen and pelvis was obtained with IV contrast. Coronal and sagittal reformatte d imaging obtained and reviewed. All CT scans at this location are performed using CT dose reduction for ALARA by means of automated exposure control. COMPARISON: Prior CT, 10/24/2018 FINDINGS: CT abdomen with contrast demonstrates grossly normal appearance of the liver, spleen, pancreas, kidne ys, and adrenal glands. No gallbladder pathology or biliary dilatation noted. CT scan pelvis does not demonstrate any pelvic mass or free fluid. A normal appendix is present in th e right lower quadrant. There is some mild colitis throughout the transverse colon. The remainder of the GI tract is unremarkable. Visualized lung bases are clear. No acute osseous abnormality. IMPRESSION: 1. Mild colitis primarily affecting the transverse colon. 2. No other significant finding. Signer Name: Sara Harden MD Signed: 03/08/2019 9:23 PM Workstation Name: [id number]
[2019-03-08] MEDS ORDERED: metroNIDAZOLE/NS 500 MG/100 ML 500 MG/100 ML BAG IV ONE (21:42)
[2019-03-08] MEDS ORDERED: levoFLOXacin 500 MG TAB PO ONE (21:42)
[2019-03-09 00:41] LABS: Bilirubin,Urine NEG (Negative); Blood,Urine NEG (Negative); Color,Urine Yellow (Yellow); Mucus,Urine 2+ /HPF; Urobilinogen,Urine < 2.0 mg/dL (<2.0)
--- NOTE | 2019-03-09 00:47 | Emergency Department Report ---
ED Abdominal Pain HPI - General Chief Complaint: Abdominal Pain Stated Complaint: BACK/ABD PAIN Time Seen by Provider: 03/08/19 18:13 Source: patient Mode of arrival: Ambulatory Limitations: No Limitations - History of Present Illness Initial Comments: Patient is a nulliparous 24-year-old female with no past medical history who presented to the ED with acute onset persistent severe diffuse low abdominal pain with intermittent nausea and vomiting for the last 3 days. Patient also complains of lack of appetite and diarrhea, urinary f requency and urgency, dysuria and generalized weakness and fatigue. Patient states that she has not been able to keep anything down in the last 2 days. Patient denies fever, chills, chest pain, shortness of breath, vaginal bleeding, vaginal discharge, headache, syncope, dizziness, sore throat or constipation. MD Complaint: abdominal pain, other (nausea and vomiting) -: Sudden, days(s) (3) Location: LLQ, RLQ, suprapubic Radiation: LLQ, RLQ, suprapubic Migration to: no migration Severity scale (0 -10): 8 Quality: cramping, aching, sharp Consistency: constant Improves With: nothing Worsens With: nothing Associated Symptoms: denies other symptoms, nausea, vomiting, anorexia. denies: fever, chills, constipation, dysuria, hematemesis, hematochezia, melena, hematuria, syncope - Related Data LMP Date: 03/03/19 Previous Rx's Medication Instructions Recorded Last Taken Type Ondansetron [Zofran Odt] 4 mg PO Q8HR PRN #10 tab.rapdis 12/31/18 Unknown Rx Sulfamethoxazole/Trimethoprim 1 each PO BID #10 tablet 12/31/18 Unknown Rx [Bactrim DS TAB] Ciprofloxacin HCl [Ciprofloxacin 500 mg PO Q12HR #20 tab 03/09/19 Unknown Rx TAB] Dicyclomine [Bentyl] 20 mg PO Q6H PRN #24 tablet 03/09/19 Unknown Rx Ketorolac [Toradol] 10 mg PO Q8H PRN #20 tablet 03/09/19 Unknown Rx Ondansetron [Zofran Odt] 4 mg PO Q6HR PRN #20 tab.rapdis 03/09/19 Unknown Rx metroNIDAZOLE [Flagyl] 500 mg PO Q8HR #30 tablet 03/09/19 Unknown Rx Allergies Allergy/AdvReac Type Severity Reaction Status Date / Time Penicillins Allergy Unknown Verified 03/08/19 18:22 ED Review of Systems ROS: Stated complaint: BACK/ABD PAIN Other details as noted in HPI Constitutional: denies: chills, fever Eyes: denies: eye pain, eye discharge, vision change ENT: denies: ear pain, throat pain Respiratory: denies: cough, shortness of breath, wheezing Cardiovascular: denies: chest pain, palpitations Endocrine: no symptoms reported Gastrointestinal: abdominal pain (diffuse lower abdominal pain), nausea, vomiting. denies: diarrhea, hematemesis, melena, hematochezia Genitourinary: urgency, dysuria, frequency. denies: discharge, abnormal menses Musculoskeletal: denies: back pain, joint swelling, arthralgia Skin: denies: rash, lesions Neurological: denies: headache, weakness, paresthesias Psychiatric: denies: anxiety, depression Hematological/Lymphatic: denies: easy bleeding, easy bruising ED Past Medical Hx - Past Medical History Previous Medical History?: No Hx Congestive Heart Failure: No Hx Diabetes: No Hx Asthma: No Hx COPD: No - Surgical History Past Surgical History?: No - Social History Smoking Status: Never Smoker - Medications Home Medications: Home Medications Medication Instructions Recorded Confirmed Last Taken Type Ondansetron [Zofran Odt] 4 mg PO Q8HR PRN #10 tab.rapdis 12/31/18 Unknown Rx Sulfamethoxazole/Trimethoprim 1 each PO BID #10 tablet 12/31/18 Unknown Rx [Bactrim DS TAB] Ciprofloxacin HCl [Ciprofloxacin 500 mg PO Q12HR #20 tab 03/09/19 Unknown Rx TAB] Dicyclomine [Bentyl] 20 mg PO Q6H PRN #24 tablet 03/09/19 Unknown Rx Ketorolac [Toradol] 10 mg PO Q8H PRN #20 tablet 03/09/19 Unknown Rx Ondansetron [Zofran Odt] 4 mg PO Q6HR PRN #20 tab.rapdis 03/09/19 Unknown Rx metroNIDAZOLE [Flagyl] 500 mg PO Q8HR #30 tablet 03/09/19 Unknown Rx ED Physical Exam - General Limitations: No Limitations General appearance: alert, in no apparent distress - Head Head exam: Present: atraumatic, normocephalic - Eye Eye exam: Present: normal appearance, PERRL, EOMI Pupils: Present: normal accommodation - ENT ENT exam: Present: normal exam, mucous membranes moist - Neck Neck exam: Present: normal inspection, full ROM. Absent: tenderness - Respiratory Respiratory exam: Present: normal lung sounds bilaterally. Absent: respiratory distress, wheezes, rales, chest wall tenderness, accessory muscle use, decreased breath sounds - Cardiovascular Cardiovascular Exam: Present: regular rate, normal rhythm, normal heart sounds. Absent: systolic murmur, diastolic murmur, rubs, gallop - GI/Abdominal GI/Abdominal exam: Present: soft, tenderness (Palpable diffuse lower abdominal tenderness with guarding, no rebound.), guarding, normal bowel sounds. Absent: rebound, rigid, hypoactive bowel sounds, organomegaly, mass - Extremities Exam Extremities exam: Present: normal inspection, full ROM, normal capillary refill - Back Exam Back exam: Present: normal inspection, full ROM. Absent: tenderness, muscle spasm, paraspinal tenderness, vertebral tenderness - Neurological Exam Neurological exam: Present: alert, oriented X3, CN II-XII intact, normal gait, reflexes normal - Psychiatric Psychiatric exam: Present: normal affect, normal mood, anxious - Skin Skin exam: Present: warm, dry, intact, normal color. Absent: rash ED Course Vital Signs 03/08/19 03/08/19 03/09/19 18:24 21:29 01:08 Temperature 98.7 F 98.6 F Pulse Rate 121 H 74 Respiratory 20 16 20 Rate Blood Pressure 150/103 103/66 [Right] O2 Sat by Pulse 100 99 Oximetry ED Medical Decision Making - Lab Data Result diagrams: 03/08/19 18:26 03/08/19 18:26 - Radiology Data Radiology results: report reviewed, image reviewed Findings [facility] [address] [place] [address] Cat Scan Report Signed Patient: JAIDEN GORDILLO MR#: [id number] : 1995 Acct:[id number] Age/Sex: 24 / F ADM Date: 03/08/19 Loc: ED Attending Dr: Ordering Physician: TANVI HCANEY Date of Service: 03/08/19 Procedure(s): CT abdomen pelvis w con Accession Number(s): [id number] cc: TANVI CHANEY CT abdomen pelvis w con INDICATION / CLINICAL INFORMATION: diffuse abdominal pain. TECHNIQUE: Axial CT imaging of abdomen and pelvis was obtained with IV contrast. Coronal and sagittal reformatted imaging obtained and reviewed. All CT scans at this location are performed using CT dose reduction for ALARA by means of automated exposure control. COMPARISON: Prior CT, 10/24/2018 FINDINGS: CT abdomen with contrast demonstrates grossly normal appearance of the liver, spleen, pancreas, kidneys, and adrenal glands. No gallbladder pathology or biliary dilatation noted. CT scan pelvis does not demonstrate any pelvic mass or free fluid. A normal appendix is present in the right lower quadrant. There is some mild colitis throughout the transverse colon. The remainder of the GI tract is unremarkable. Visualized lung bases are clear. No acute osseous abnormality. IMPRESSION: 1. Mild colitis primarily affecting the transverse colon. 2. No other significant finding. Signer Name: Sara Harden MD Signed: 03/08/2019 9:23 PM Workstation Name: [id number] Transcribed By: JR Dictated By: Sara Harden MD Electronically Authenticated By: Sara Harden MD Signed Date/Time: 03/08/192122 DD/ 18 TD/TT: - Medical Decision Making This is a 24-year-old female with no past medical history who presented to the ED, and of acute onset persistent severe diffuse lower abdominal pain with nausea and vomiting and diarrhea for 3 days. In the ED, patient is alert and oriented 3 and is nontender distress but appears to be in significant pain and is actively vomiting during the physical exam. Patient was treated for nausea and vomiting and pain and also given normal saline 1 L IV bolus 1. Laboratory results were reviewed and are all nonactionable. Abdomen pelvis CT scan with contrast shows mild colitis primarily affecting the transverse colon. There is no other abnormal findings in the abdomen pelvis CT scan with contrast. Patient received Flagyl 500 mg IV 1 and Levaquin 500 mg by mouth 1. On reevaluation, patient's pain and nausea and vomiting resolved in the ED. Patient feeling better and was able to drink water with no vomiting or nausea. Patient was discharged home on pain medications, antiemetics, and oral antibiotics Flagyl and ciprofloxacin for colitis and was advised to follow up with her primary care physician in 7-10 days for reevaluation or return to the ED immediately if symptoms get worse. - Differential Diagnosis Appendicitis; Ovarian cyst; UTI; Colitis; Gastroenteritis; PID Critical care attestation.: If time is entered above; I have spent that time in minutes in the direct care of this critically ill patient, excluding procedure time. ED Disposition Clinical Impression: Acute bilateral lower abdominal pain, Nausea and vomiting in adult, Acute colitis Disposition: TO HOME OR SELFCARE Is pt being admited?: No Does the pt Need Aspirin: No Condition: Stable Instructions: Acute Nausea and Vomiting (ED), Abdominal Pain (ED), Infectious Colitis (ED) Additional Instructions: Take medications with food, drink plenty of fluids and follow up with your primary care physician in 7-10 days for reevaluation. Return to the ED immediately if symptoms get worse especially cannot keep all the antibiotics taken by mouth. Prescriptions: Dicyclomine [Bentyl] 20 mg PO Q6H PRN #24 tablet PRN Reason: ABDOMINAL PAIN Ciprofloxacin HCl [Ciprofloxacin TAB] 500 mg PO Q12HR #20 tab metroNIDAZOLE [Flagyl] 500 mg PO Q8HR #30 tablet Ketorolac [Toradol] 10 mg PO Q8H PRN #20 tablet PRN Reason: Pain Ondansetron [Zofran Odt] 4 mg PO Q6HR PRN #20 tab.rapdis PRN Reason: Nausea Referrals: GAEL SLATER MD [Staff Physician] - 7-10 days Forms: Work/School Release Form(ED) Time of Disposition: :02 Print Language: BERMUDIAN
[2019-03-09 01:09] VITALS: BP 103/66
== END 2019-03-09 01:38 | disposition home or self-care (01) ==
LOC: ED 18:12
DX: K52.9 Noninfective gastroenteritis and colitis, unspecified (principal)
CPT/HCPCS: 36415; 74177; 80053; 81001; 83690; 84703; 85025; 96361; 96365; 96366; 96375; 99284; J2270; J2405; J7030; Q9967; Q0162

== ENCOUNTER 2019-03-09 18:37 | Emergency (ER) | payer SELFPAY ==
--- NOTE | 2019-03-09 22:47 | Event Note ---
ED Screening Note Date of service: 03/09/19 Time: 22:44 ED Screening Note: 24 y o f presents with worsening abd pain was seen yesterday all labs and CT shows colitis This initial assessment/diagnostic orders/clinical plan/treatment(s) is/are subject to change based on patients health status, clinical progression and re- assessment by fellow clinical providers in the ED. Further treatment and workup at subsequent clinical providers discretion. Patient/guardian urged not to elope from the ED as their condition may be serious if not clinically assessed and managed. Initial orders include: Discussed with pt to tHE HER MEDS AND FOLLOW INSTRUCTIONS GIVEN PT IN WHEELCHAIR, HEAVING STATING SHE CANT HOLD FOOD DOWN SPITTING UP IN TRIAGE REVITALIZED, vss
[2019-03-09 22:50] VITALS: BP 147/102
== END 2019-03-10 01:07 ==
LOC: ED 18:37
DX: R10.9 Unspecified abdominal pain (principal); Z53.21 Procedure and treatment not carried out due to patient leaving prior to being seen by health care provider

== ENCOUNTER 2020-03-06 07:48 | Emergency (ER) | payer SELFPAY ==
[2020-03-06 08:14] VITALS: BP 120/84
== END 2020-03-06 10:53 | disposition left against medical advice (07) ==
LOC: ED 07:48
DX: R51.9 Headache, unspecified (principal); Z53.21 Procedure and treatment not carried out due to patient leaving prior to being seen by health care provider